=== PATIENT | female | born 1975 | race Caucasian/White ===

== ENCOUNTER 2019-03-02 13:54 | Emergency (ER) | payer BC ==
[~2019-03-02] VITALS: Ht 165.1 cm; Wt 70.3 kg
[2019-03-02 14:05] VITALS: BP_SYST 161
[2019-03-02] MEDS ORDERED: KETOROLAC TROMETHAMINE 60 MG/2 ML VIAL IM ONE (14:30)
[2019-03-02] MEDS ORDERED: ONDANSETRON HCL 4 MG/2 ML VIAL IVP ONE (15:00)
[2019-03-02] MEDS ORDERED: MORPHINE 4 MG/ML INJ. SYRINGE IVP ONE (15:00)
[2019-03-02 16:14] VITALS: BP_SYST 141
== END 2019-03-02 16:07 | disposition home or self-care (01) ==
LOC: SED 13:54
DX: M62.830 Muscle spasm of back (principal); Z88.0 Allergy status to penicillin
CPT/HCPCS: 72100; 96372; 96374; 96375; 99283; J1885; J2270; J2405